=== PATIENT | female | born 1995 | race Caucasian/White ===

== ENCOUNTER 2023-12-06 21:56 | Emergency (ER) | payer BC, SELFPAY ==
[2023-12-06 22:24] VITALS: BMI 34.3
[2023-12-06 22:34] LABS: % Basophils 0.7 % (0-2); % Eosinophils 1.2 % (0-6); % Immature Granulocytes 0.2 % (0-0.5); % Lymphocytes 29.3 % (20.5-51.1); % Monocytes 6.9 % (1.7-9.3); % Neutrophils 61.7 % (42.2-75.2); Absolute Basophils 0.1 10^3/uL (0-0.2); Absolute Eosinophils 0.1 10^3/uL (0-0.7); Absolute Lymphocytes 2.5 10^3/uL (1.2-3.4); Absolute Monocytes 0.6 10^3/uL (0.1-0.6); Absolute Neutrophils 5.2 10^3/uL (1.4-6.5); Hematocrit 36.6 % (37.0-47.0); Hemoglobin 12.5 g/dL (12.0-16.0); Mean Corp Hgb Conc. 34.2 g/dL (33.0-37.0); Mean Corpuscular Hgb 29.6 pg (27.0-31.0); Mean Corpuscular Volume 86.5 fL (81.0-99.0); Mean Platelet Volume 8.9 fL (7.4-10.4); Nucleated Red Blood Cells % 0 %; Platelet Count 314 10^3/uL (130-400); Red Blood Cell Count 4.23 10^6/uL (4.20-5.40); Red Cell Dist. Width 12.7 % (11.5-14.5); White Blood Cell Count 8.5 10^3/uL (4.8-10.8)
[2023-12-06 22:45] LABS: HCG, Serum Qualitative Screen Negative
[2023-12-06 22:50] LABS: ALT (SGPT) 19 U/L (0-35); AST (SGOT) 24 U/L (14-36); Albumin 4.3 g/dl (3.5-5.0); Alkaline Phosphatase 61 U/L (38-126); Blood Urea Nitrogen 13 mg/dl (7-17); Calcium 9.6 mg/dl (8.4-10.2); Carbon Dioxide 26 mmol/L (22-30); Chloride 105 mmol/L (98-107); Estimated Creatinine Clearance 123 ml/min; Glucose 96 mg/dl (70-99); Lipase 147 U/L (23-300); Potassium 3.8 mmol/L (3.5-5.1); Sodium 137 mmol/L (135-145); Total Bilirubin 0.2 mg/dl (0.2-1.3); eGFR > 60.00
--- NOTE | 2023-12-06 22:55 | ED.GENMED ---
History of Present Illness
General
Chief Complaint: Abdominal Pain
Source: patient
Exam Limitations: none
Time Seen by Provider: 12/06/23 22:43
Nursing documentation reviewed up to this point in time: agreed with
Travel History
Have you had any contact with someone who has COVID-19?: No
Do you have any symptoms of coronavirus? Fever > 100 degrees, chills, cough, shortness of breath, sore throat, loss of taste or smell, muscle aches, or headache?: No
History of Present Illness
History of Present Illness:
This is a 28-year-old female who has history of mild generally exercise-induced asthma, anxiety, seasonal allergies who presents with abdominal pain that initially began around 7 PM as a sensation of 'gas pains' with generalized upper abdominal
discomfort that progressed quickly to generalized mid to left-sided abdominal pain, a sense of bloating and inability to stand upright due to increase in abdominal pain. Abdominal pain then seemed to localize to her left lower quadrant, moderate in
intensity. She denies nausea nor vomiting, no diarrhea nor constipation and states she passed a normal bowel movement this morning. She denies dysuria and urgency nor hematuria. No fever nor chills. No history of similar episodes of pain in the
past. She has not taken anything for discomfort.
Currently pain is markedly improved, near completely resolved. She denies passing gas.
Last menstrual period 1 month ago, her menses is due tomorrow, she denies risk of , maintained on control pills.
Her daily medications include: control pills, Zyrtec, sertraline.
Her mother of breast cancer and patient admits that she always worries regarding potential cancer.
Her sister has history of ovarian cyst, polycystic ovarian disease. Patient herself has never been diagnosed with ovarian cysts.
Past History
Past History
ED Past Medical History: Asthma (Mild, exercise-induced has been stable without flares over the past several years), Psychiatric (Anxiety) and Other (Seasonal allergies)
ED Past Surgical History: Orthopedic (Right wrist cyst removal)
Social History
Tobacco: Non-smoker
Alcohol: Occasional (Rare alcohol use)
Drug: None
Personal: Single
Living: with family
Employment: Employed
Family History
Family History: Cancer (Mother of breast cancer-postmenopausal onset breast cancer) and Other (Sister with history of PCOS)
Phy Exam
Physical Exam
Physical Exam:
GENERAL: 28-year-old female appears her stated age, bright and alert, pleasant, appears in no acute distress. Significant other is accompanying.
EYE: anicteric
NECK: Supple, nontender, no meningismus, no significant adenopathy.
ENT: oral mucosa is moist. No rhinorrhea
CARDIAC: Regular rate and rhythm. no murmur.
LUNGS: Clear breath sounds bilaterally, no acute respiratory distress, no wheezes/rales/rhonchi
ABDOMEN: Soft, nondistended, very minimal tenderness left lower quadrant with deep palpation only, mild to moderate firm stool palpable in left lower quadrant, no r/g, no cvat. normoactive BS.
NEUROLOGICAL: Alert and oriented x3, no focal neuro deficits. Gait is ulloa and steady.
SKIN: Warm and dry, normal color, skin intact. No rash.
MUSCULOSKELETAL: No C/C/E. peripheral pulses are full and equal b/l. No palpable tenderness.
PSYCH: Normal and appropriate interaction.
Course
Orders/Labs/Results
Orders:
Orders
12/06/23 22:20
Test Result ONCE
12/06/23 22:26
Complete Blood Count/With Diff Urgent
Comprehensive Metabolic Panel Urgent
HCG, Serum Qualitative Screen Urgent
Lipase Urgent
12/06/23 23:01
0.9% Sodium Chloride 1000 ml [Nss] 1,000 ml IV BOLUS
12/06/23 23:17
Urinalysis Reflex To Culture Urgent
Date Specimen was Collected: 12/06/23
Time Specimen was Collected: 23:16
Urine Microscopic Reflex Cult Urgent
Urine Culture Urgent
ISIDRO Source: U
Specimen Description:
Date Specimen was Collected: 12/06/23
Time Specimen was Collected: 23:16
12/07/23 22:54
US Pelvis Only (non-obstetric) Urgent
Reason For Exam: acute LLQ pain
US Renal With Bladder Urgent
Reason For Exam: acute severe left sided abd pain
Abnormal Lab Results
12/06/23 12/06/23
22:26 23:17
Hct 36.6 L %
(37.0-47.0)
Leukocyte Esterase Rfl 2+ A
(Negative)
Urine RBC 3-6 A /HPF
(0-2)
Urine WBC (Reflex) >100 A /HPF
(0-5)
Urine Bacteria (Reflex) Many A
(Negative)
12/06/23 22:26
12/06/23 22:26
Vital Signs
Initial and Last Documented VS:
Initial Vital Signs
Temp Pulse Resp Pulse Ox
98.3 F 78 16 100
12/06/23 21:57 12/06/23 21:57 12/06/23 21:57 12/06/23 21:57
Last Documented Vital Signs
Temp Pulse Resp BP Pulse Ox
98.3 F 78 16 99/66 98
12/06/23 21:57 12/06/23 21:57 12/06/23 21:57 12/07/23 00:00 12/07/23 00:00
MDM/Problems Addressed
Differential Diagnosis Includes:
Concern for ruptured ovarian cyst, ovarian torsion, renal colic/ureteric stone, constipation. Small bowel obstruction, colitis, UTI, pyelonephritis are less likely.
Labs are pending.
Currently comfortable with exam noting only minimal tenderness with deep palpation only to the left lower quadrant. Moderate firm stool palpable in the left lower quadrant.
Will check pelvic ultrasound assess for potential ovarian cyst/ovarian torsion. Will also check renal ultrasound assess for hydronephrosis, intrarenal stones, ureteral jet patency.
Will plan for urinalysis, to obtain urine specimen after pelvic ultrasound.
Will continue to observe for return of pain.
*Radiology
Radiology exam reviewed: radiology read reviewed
*Pulse Oximetry
Patient hypoxic: no
*Critical Care Note
Total Time (30-74mins, 75-104mins- exclusive of procedures): Not Applicable
Update Note
Update Note:
12/07/2023 0107 AM
Patient remains comfortable and pain-free.
Abdomen is soft and nontender.
Pelvic ultrasound as well as renal ultrasound are unremarkable.
Labs are unremarkable.
Urinalysis shows many bacteria, greater than 100 WBCs but is noted to be a contaminated specimen with greater than 30 squamous epithelial cells. Patient continues to have no UTI symptoms, I suspect urinalysis is contamination in nature and will
hold off on antibiotics and instead await urine culture results.
I suspect abdominal pain this evening was large bowel gas pain versus constipation in nature.
Discussed importance of staying well-hydrated on a daily basis, increased fiber rich foods versus adding a stool softener. Prompt follow-up with PCP for recheck.
ED Attending Note
-
Portions of this chart may have been created with voice recognition software.� Occasional wrong word or��sound alike� substitutions may have occurred due to the inherent limitations of voice recognition software.
Discharge Plan
Departure
Patient Disposition: Home (Routine Discharge)
Date of Disposition: 12/07/23
Time of Disposition: 01:10
Patient with high blood pressure during this ER visit?: No
Condition: Good
Discharge Problem:
Acute left sided abdominal pain
Instructions: Constipation, Adult (DC), Abdominal Pain
Prescriptions:
No Action
Control Palls
1 tab PO DAILY
cetirizine [Zyrtec] 10 mg Tablet
10 mg PO DAILY
sertraline 25 mg Tablet
25 mg PO DAILY
Nasal [place] (oxymetazoline)
2 spray intranasal DAILY
Referrals:
Rusty Barfield MD [Family Provider] - Call in 1-3 days for appt
Interventions
Interventions:
*Risk Screen - Suicide Last Done: 12/06/23 21:57
*General Assessment Last Done: 12/06/23 21:57
*Neglect/Abuse Screening Last Done: 12/06/23 22:28
ED- Fall Risk Assessment Last Done: 12/06/23 22:24
*ED COVID-19 Vaccine History Last Done: 12/06/23 21:57
TX-Dppaav-Dromkgbbbe Assessment Last Done: 12/06/23 22:24
Discharge Date and Time
Print Language: MOROCC[place]
[2023-12-06] MEDS: NSS 1000 IV (23:12)
[2023-12-06 23:15] VITALS: BP 109/50
[2023-12-06 23:34] LABS: Urine Albumin Negative (Neg - Trace); Urine Bilirubin Negative (Negative); Urine Character Slightly Cloudy (Clear); Urine Color Yellow; Urine Glucose Negative (Negative); Urine Ketone Negative (Negative); Urine Leukocyte 2+ (Negative); Urine Nitrite Negative (Negative); Urine Occult Blood Negative (Negative); Urine Specific Gravity 1.015 (<1.030); Urine Urobilinogen Negative (Neg - 1+); Urine pH 6.5 (5.0-9.0)
[2023-12-07] VITALS: BP 99/66
[2023-12-07 00:45] LABS: Urine Mucus Moderate; Urine Squamous Cell >30 /LPF (Few)
[2023-12-07 00:46] LABS: Urine Bacteria Many (Negative); Urine White Cell >100 /HPF (0-5)
== END 2023-12-07 01:42 | disposition home or self-care (01) ==
LOC: EMR 21:56
PROVIDERS: EMERGENCY PHYSICIAN Emergency Medicine; FAMILY PHYSICIAN Family Medicine
DX: R10.9 Unspecified abdominal pain (principal)
CPT/HCPCS: 99284; 76770; 76856; 80053; 81003; 81015; 83690; 84703; 85025; 87086